=== PATIENT | male | born 1990 | race Caucasian/White ===

== ENCOUNTER 2017-07-10 01:34 | Emergency (ER) | payer SELFPAY ==
[~2017-07-10] VITALS: Ht 170.2 cm; Wt 68.2 kg
[2017-07-10 02:35] VITALS: TEMP 97.1
[2017-07-10 09:01] VITALS: BP 128/79; PULSE 64
== END 2017-07-10 09:53 | disposition home or self-care (01) ==
LOC: COL.ER 01:34
DX: S05.12XA Contusion of eyeball and orbital tissues, left eye, initial encounter (principal); S05.11XA Contusion of eyeball and orbital tissues, right eye, initial encounter; S05.02XA Injury of conjunctiva and corneal abrasion without foreign body, left eye, initial encounter; S05.01XA Injury of conjunctiva and corneal abrasion without foreign body, right eye, initial encounter; F17.210 Nicotine dependence, cigarettes, uncomplicated; Z23 Encounter for immunization; Y04.0XXA Assault by unarmed brawl or fight, initial encounter